=== PATIENT | male | born 1955 | race African-American/Black ===

== ENCOUNTER 2020-02-17 14:26 | Emergency (ER) | payer MEDICAID ==
[~2020-02-17] VITALS: Ht 175.3 cm; Wt 81.6 kg
[2020-02-17] MEDS ORDERED: ACETAMINOPHEN 325MG TABLET PO ONE (15:30)
[2020-02-17] MEDS ORDERED: IBUPROFEN 600MG TABLET PO ONE (16:45)
[2020-02-17 16:50] VITALS: BP 124/86
== END 2020-02-17 17:01 | disposition home or self-care (01) ==
LOC: ER 14:26
DX: M25.512 Pain in left shoulder (principal)
CPT/HCPCS: 73030; 99283